=== PATIENT | male | born 1970 | race Caucasian/White ===

== ENCOUNTER → 2020-08-30 13:43 | Outpatient (BNVA) | payer OTHER, SELFPAY | PROVIDERS: Visit Provider Electrodiagnostic Medicine | DX: Z20.828 Contact with and (suspected) exposure to other viral communicable diseases (principal) | CPT/HCPCS: 87635 ==

== ENCOUNTER 2021-03-07 07:10 | Outpatient (CLI) | payer OTHER, SELFPAY ==
[2021-03-07 07:28] VITALS: BP 131/90; PULSE 80; RESP 16; TEMP 36.9; O2SAT 97; BMI 32.1
[2021-03-07 08:00] VITALS: BP 122/80; PULSE 76; RESP 16; O2SAT 93
[2021-03-07 08:50] VITALS: BP 120/80; PULSE 74; RESP 16; TEMP 36.8; O2SAT 94
== END 2021-03-07 07:11 | disposition home or self-care (01) ==
LOC: OPS 07:11
PROVIDERS: PCP Electrodiagnostic Medicine; Visit Provider Nurse Practitioner
DX: U07.1 COVID-19 (principal)
CPT/HCPCS: 96365

== ENCOUNTER 2021-03-29 03:35 | Emergency (ER) | payer OTHER, SELFPAY ==
[2021-03-29 03:39] VITALS: BP 187/95; PULSE 90; RESP 22; TEMP 36.2; O2SAT 96; BMI 32.1
--- NOTE | 2021-03-29 03:46 | CTR_ITS ---
PROCEDURE INFORMATION: Exam: CT Abdomen And Pelvis Without Contrast Exam date and time: 03/29/2021 3:46 AM Age: 50 years old Clinical indication: Abdominal pain; Patient HX: Left flank/groin pain; Additional info: L flank pain TECHNIQUE: Imaging protocol: Computed tomography of the abdomen and pelvis without contrast. Radiation optimization: All CT scans at this facility use at least one of these dose optimization techniques: automated exposure control; mA and/or kV adjustment per patient size (includes targeted exams where dose is matched to clinical indication); or iterative reconstruction. COMPARISON: No relevant prior studies available. RADIATION DOSE METRICS: Total DLP (mGy-cm): 1685.54 FINDINGS: Liver: Normal. No mass. Gallbladder and bile ducts: Multiple gallstones are present. No pericholecystic inflammatory changes to suggest cholecystitis. Pancreas: Normal. No ductal dilation. Spleen: Normal. No splenomegaly. Adrenal glands: Normal. No mass. Kidneys and ureters: There is a 0.6 cm obstructing stone in the left UVJ, resulting in mild hydronephrosis and stranding of the surrounding fat. There is an additional 1.0 cm calcific density within/adjacent to the left distal ureter. Other tiny nonobstructing stones are noted in the left lower kidney. There is a 1.5 cm cyst in the left mid kidney. The right kidney is unremarkable. Stomach and bowel: Unremarkable. No obstruction. No mucosal thickening. Appendix: No evidence of appendicitis. Intraperitoneal space: Unremarkable. No free air. No significant fluid collection. Vasculature: Unremarkable. No abdominal aortic aneurysm. Lymph nodes: Unremarkable. No enlarged lymph nodes. Urinary bladder: Unremarkable as visualized. Reproductive: Unremarkable as visualized. Bones/joints: Unremarkable. No acute fracture. Soft tissues: Unremarkable. CT/CT kidney stone [id number] IMPRESSION: Left UVJ obstructing stone, resulting in mild hydronephrosis. Additional calcific density within/adjacent to the left distal ureter. COMMENTS: Consistent with the [employer]'s Incidental Findings Committee white paper (J Am Carmelita Radiol 2018): Any incidental renal lesion less than 1 cm or classified as too small to characterize, or any incidental cystic renal lesion characterized as simple-appearing, is likely benign. No follow-up imaging is recommended for these lesions per consensus recommendations based on imaging criteria. Radiation Dose CTDIVOL = (mGy): DLP = 1685.54 (mGy-cm)
--- NOTE | 2021-03-29 03:47 | ED_ITS ---
HPI - Back Pain/Injury General: Chief Complaint: Back Pain/Injury Stated Complaint: left lower groin pain, L flank pain Time Seen by Provider: 03/29/21 03:36 Source: patient Mode of arrival: ambulatory Limitations: no limitations History of Present Illness: HPI Narrative: 50-year-old male states that at midnight he had sudden onset of left-sided flank pain. States the pain is severe in nature and rates an 8 out of 10. States it wraps around his left back and goes down to his left testicle. Denies any history of kidney stones in the past. Denies any vomiting or diarrhea. Denies any fevers. He states the pain is been constant not worse with movement or palpation. Associated symptoms: Deny abdominal pain, chills, fever(s), nausea or vomiting Review of Systems Const: Denies: fever(s), chills, body aches or change in appetite Eyes: Denies: blurry vision or eye discomfort ENMT: Denies: throat pain or dental pain Card: Denies: chest pain Resp: Denies: dyspnea GI: Denies: abdominal pain, nausea, vomiting or diarrhea : Reports: flank pain Musc: Denies: neck pain or back pain Skin/Breast: Denies: rash Neuro: Denies: headache(s) Psych: Denies: depression Delon/Lymph: Denies: easy bruising All/Imm: Denies: urticaria Physical Exam Const: COMMON NORMALS: no acute distress, patient oriented x3 and healthy appearing HENMT: COMMON NORMALS: normocephalic and atraumatic HEAD & SCALP: normocephalic and atraumatic Eye: COMMON NORMALS: Equal, round and reactive pupils present and EOMs intact bilaterally PUPIL: Yes Equal, round and reactive pupils present Neck/C-Spine: COMMON NORMALS: full ROM and supple Chest: COMMONS NORMALS: normal inspection of the chest and normal palpation of entire chest wall Resp: COMMON NORMALS: normal respiratory effort, No retractions, No use of accessory muscles and clear to auscultation bilaterally AUSCULTATION: clear to auscultation bilaterally Cardio: COMMON NORMALS: regular rate, regular rhythm and No murmurs present (Cardio) RATE: regular rate RHYTHM: regular rhythm GI: COMMON NORMALS: Normal to inspection, nondistended, normoactive bowel sounds present, Soft to palpation, non-tender and no masses PALPATION: Yes Soft to palpation Extremity: COMMON NORMALS: normal to inspection and full ROM Neuro: COMMON NORMALS: patient oriented x3, moves all extremities and no focal motor deficits Psych: COMMON NORMALS: mental status grossly normal, Normal thought process present and cooperative THOUGHT PROCESS: Normal thought process present Skin: COMMON NORMALS: no rashes or lesions noted and no wounds GENERAL SKIN EXAM: no rashes or lesions noted Course Vital Signs: Vital signs: Vital Signs Temperature 97.1 F L 03/29/21 03:39 Pulse Rate 86 03/29/21 06:39 Respiratory Rate 18 03/29/21 06:39 Blood Pressure 149/98 03/29/21 06:39 Pulse Oximetry 94 03/29/21 06:39 MDM - Back Pain/Injury MDM Narrative: Medical decision making narrative: Patient presents here with a kidney stone. Patient's pain here is completely resolved he is stable for discharge. We will place him on Flomax along with pain medicine and have him follow-up with Dr. Garrido in 1 to 2 days. He is return if worsening. He understands agrees to plan. Lab Data: Labs: Lab Results 03/29/21 Range/Units 03:54 Urine Color Yellow (Yellow) Urine Appearance Clear (CLEAR) Urine pH 7 (5-7) Ur Specific Gravit y 1.005 (1.005-1.030) Urine Protein Neg (Negative) Urine Glucose (UA) Norm (Normal) Urine Ketones Negative (Negative) Urine Blood 2+ H (Negative) Urine Nitrate Negative (Negative) Urine Bilirubin Neg (Negative) Urine Urobilinogen Norm (Negative) mg/dL Ur Leukocyte Tere ase Negative (Negative) Urine RBC 5-10 H (0-2) /hpf Urine WBC 0-4 H (0-5) /hpf Ur Squamous Epith Cells 0-4 H (0-5) /hpf Amorphous Sediment 1+ /hpf Urine Bacteria Trace (NONE) /hpf Discharge Plan Discharge Patient Disposition: Home Clinical Impression: Kidney stone Condition: Stable Prescriptions: New hydrocodone-acetaminophen 5-325 mg tablet 1 tab PO Q6H PRN (Reason: pain) Qty: 14 RF: 0 ondansetron 4 mg tablet,disintegrating 4 mg PO Q6H PRN (Reason: nausea and vomiting) Qty: 14 RF: 0 Flomax 0.4 mg capsule 0.4 mg PO DAILY Qty: 5 RF: 0 Discharge Orders: Discharge ED (Routine); Ordered 03/29/21 Ordered By: Martín Yun Referrals: Javon Garrido MD [Physician] - 1-3 days Renato Lo DO [Primary Care Provider] - Discharge Diet: Advance as tolerated Discharge Activity: Resume usual activity Patient Instructions: Kidney Stones (ED), Opioid Safety Coding Level of Care Code ED Sustainable Design Coordinator for Chg Fwd Exam Comprehensive
[2021-03-29] MEDS: sodium chloride 0.9% 1,000 ML 999 ML IV (03:50)
[2021-03-29] MEDS: ondansetron 2 mg/ML SDV 2 mL 4 MG IVP (03:55)
[2021-03-29 04:10] VITALS: RESP 20; O2SAT 98
[2021-03-29] MEDS: HYDROmorphone 1 mg/mL INJ 1 mL IVP (04:10)
[2021-03-29 04:21] LABS: Add Urine Microscopic? YES; Bacteria Urine TRACE /hpf; Bilirubin Urine Neg (Negative); Blood Urine 2+ (Negative); Glucose Urine UA Norm (Normal); Ketones Urine Negative (Negative); Leukocyte Esterase Urine Negative (Negative); Nitrate Urine Negative (Negative); Protein Urine Neg (Negative); Specific Gravity, Urine 1.005 (1.005-1.030); Squamous Epithelial Cell Urine 0-4 /hpf (0-5); Urine Appearance Clear (CLEAR); Urine Color Yellow (Yellow); Urobilinogen Urine Norm (Negative); WBC Urine 0-4 /hpf (0-5); pH Urine 7 (5-7)
[2021-03-29 04:22] LABS: Add Urine Culture? No; Amorphous Sediment Urine 1+ /hpf
[2021-03-29 05:12] VITALS: BP 136/87; PULSE 70; RESP 16; O2SAT 90
[2021-03-29 06:09] VITALS: RESP 18; O2SAT 98
[2021-03-29] MEDS: HYDROmorphone 1 mg/mL INJ 1 mL 0.5 MG IVP (06:09)
[2021-03-29] MEDS: ketorolac 30 mg/mL INJ 15 MG IVP (06:09)
[2021-03-29 06:21] VITALS: BP 164/98; PULSE 84; RESP 18; O2SAT 90
[2021-03-29 06:39] VITALS: BP 149/98; PULSE 86; RESP 18; O2SAT 94
--- NOTE | 2021-03-29 13:39 | DCPLANNER ---
multimedia services manager had message to schedule a follow up appointment for patient with Dr. Garrido. multimedia services manager called the office of Dr. Garrido, spoke with Zaynab, gave clinic patients information. multimedia services manager was told that patients information would be printed and reviewed. Clinic will call patient with appointment information.
--- NOTE | 2021-04-02 14:50 | DCPLANNER ---
Patient had a follow up appointment scheduled for 04.02.[address] Garrido - patient did attend appointment.
== END 2021-03-29 06:41 | disposition home or self-care (01) ==
PROVIDERS: Emergency Provider Emergency Medicine; PCP Electrodiagnostic Medicine
DX: N20.0 Calculus of kidney (principal)
CPT/HCPCS: 74176; 81001; 96361; 96374; 96375; 99284; J1170; J1885; J2405; J7030

== ENCOUNTER 2021-04-02 09:17 | Outpatient (CLI) | payer OTHER, SELFPAY ==
--- NOTE | 2021-04-02 09:30 | XRR_ITS ---
PROCEDURE INFORMATION: Exam: XR Abdomen Exam date and time: 04/02/2021 9:30 AM Age: 50 years old Clinical indication: Condition or disease; Kidney or ureter condition; Calculus (stone) in kidney; Patient HX: Kidney stones. Lt side; Additional info: Kidney stone f/u TECHNIQUE: Imaging protocol: XR of the abdomen. Views: Frontal supine view of the abdomen. 1 View. COMPARISON: CT kidney stone [id number] 03/29/2021 4:22 AM FINDINGS: Gastrointestinal tract: Normal. No bowel dilation. Intraperitoneal space: 6 mm and 5 mm calcifications in the lower left pelvis is consistent with calculi in the distal left ureter. The calculus identified near the iliac vessels on the CT has likely migrated more distally into the ureter. Organs: No renal calculus visualized. Bones/joints: Unremarkable. XR/XR KUB [id number] IMPRESSION: 1. Renal calculi in the distal left ureter. The previous calculus in the region of the left iliac vessels appears to have migrated more distally.
== END 2021-04-02 09:18 | disposition home or self-care (01) ==
PROVIDERS: PCP Electrodiagnostic Medicine; Visit Provider Urology
DX: N20.0 Calculus of kidney (principal)
CPT/HCPCS: 74018; 81003

== ENCOUNTER 2021-04-09 06:48 | Outpatient (CLI) | payer OTHER, SELFPAY ==
--- NOTE | 2021-04-09 07:00 | XR_ITS ---
WS: [id number] Exam: XR KUB [id number] Date/Time of Exam: 04/09/2021 6:57 AM Reason For Exam: URETERAL CALCULUS Comparison 04/02/2021. No bowel obstruction or free air. Small triangular-shaped calcification superimposes the left bladder and may represent a urinary tract stone. This has moved inferiorly since the prior study. No calcifi cations seen over the region of the kidneys. Regional bony structures are intact. No sign of organ en largement. XR/XR KUB [id number] IMPRESSION: 1. Small triangular-shaped calcification has moved distally and now superimpose s urinary bladder and may represent a urinary calculus in the bladder. 2. No acute abdominal finding.
== END 2021-04-09 06:49 | disposition home or self-care (01) ==
LOC: RAD 06:51
PROVIDERS: PCP Electrodiagnostic Medicine; Visit Provider Urology
DX: N20.1 Calculus of ureter (principal)
CPT/HCPCS: 74018; 81003

== ENCOUNTER 2021-04-16 06:51 | Outpatient (CLI) | payer OTHER, SELFPAY ==
--- NOTE | 2021-04-16 07:00 | XR_ITS ---
WS: [id number] XR KUB [id number] REASON FOR EXAM: ureteral calculus FINDINGS: No urinary tract calculi identified. The 2 left ureteral and 1 left intrarenal calculus demonstrated on the previous CT scan of 03/29/2021 are not identifiable on the current examination. No other significant finding. XR/XR KUB [id number] IMPRESSION: No urinary tract calculi identifiable.
== END 2021-04-16 06:52 | disposition home or self-care (01) ==
PROVIDERS: PCP Electrodiagnostic Medicine; Visit Provider Urology
DX: N20.1 Calculus of ureter (principal)
CPT/HCPCS: 74018; 81003

== ENCOUNTER 2021-04-19 14:02 | Day surgery (SDC) | payer OTHER, SELFPAY ==
[2021-04-18 15:57] VITALS: BMI 31.6
--- NOTE | 2021-04-19 14:14 | XR_ITS ---
WS: [id number] XR KUB [id number] REASON FOR EXAM: Left distal ureteral stone FINDINGS: No calculi identified in the right kidney. The tiny calculus in the left kidney demonstrated on the CT scan of 03/29/2021 is not identified on th is examination. The complex calculus in the lower pelvis just to the left of midline is again noted and unchanged in compared to 04/16/2021.. Position is consistent with the left ureteral vesicle junction. No other significant abdominal or pelvic abnormality. XR/XR KUB [id number] IMPRESSION: Distal left ureteral calculus unchanged in position compared to 04/16/2021.
--- NOTE | 2021-04-19 14:14 | SC_ITS ---
WS: [id number] [facility] REASON FOR EXAM: Preop left ureteroscopy FINDINGS: Intraprocedural retrograde ureteral pyelogram. Initial injection of contrast into the distal left ure ter demonstrates the previously identified complex calculus at the ureterovesical junction. Mild/mode rate dilatation of the distal left ureter proximal to the calculus. Catheter advanced to the left renal pelvis. Small amount of contrast within the left collecting syste m demonstrates mild dilatation of the opacified calyces. MO/[facility] IMPRESSION: Distal left ureteral calculus, ureteral vesicle junction. Left obstructive urop athy.
[2021-04-19] MEDS: sodium chloride 0.9% 1,000 ML 30 ML IV (14:54)
[2021-04-19 14:59] VITALS: BP 135/94; PULSE 56; RESP 17; TEMP 36.3; O2SAT 98
--- NOTE | 2021-04-19 15:20 | ANES.PREANE2 ---
Pre-Anesthetic Assessment Pre-Anesthetic Assessment: Height/Weight: Height 1.71 m Weight 92.986 kg Temp Pulse Resp BP Pulse Ox 97.3 F L 56 L 17 135/94 98 04/19/21 14:59 04/19/21 14:59 04/19/21 14:59 04/19/21 14:59 04/19/21 14:59 Preop Diagnosis: Refractory left distal ureteral stone Proposed Procedure: Operation Date: 04/19/21 16:00 Proposed Procedures p Laser Lithotripsy 87902 07725 53584 N20.1(Not Applicable) - Javon Garrido MD s Cystoscopy(Not Applicable) - Javon Garrido MD s Retrograde Pyelogram(Left) - Javon Garrido MD s Ureteroscopy(Not Applicable) - Javon Garrido MD s Ureteral Stent Placement(Not Applicable) - Javon Garrido MD Was Beta Manjit taken within 24 hours: N/A Was Clonidine taken within 24 hours: N/A Last intake: Intake Last Liquid Date 04/19/21 Last Liquid Time 10:00 Last Solid Date 04/18/21 Last Solid Time 20:00 Social: Social History: Tobacco (Chews) and No alcohol Exam: Pre-Anes Outpt Exam: alert, oriented x 3, clear to auscultation bilaterally and regular rate & rhythm Airway: Submandibular: WNL Cervical ROM: WNL MP: 2 Dentition: Chipped CV/HEM: CV/HEM: HTN Anesthetic Plan: ASA status: 2 Anesthesia: General Risk of > 500 ml blood loss (7ml/kg in children): No Meds/Allergies Current Medications: Current Medications Generic Name Dose Route Start Last Admin Trade Name Freq PRN Reason Stop Dose Admin Sodium Chloride 1,000 mls @ 30 ml s/hr 04/19/21 14:15 04/19/21 14:54 Sodium Chloride 0.9% IV 04/20/21 14:14 30 mls/hr .Q24H MADAN Administration PFSH Anesthesia PFSH: Medical History Left ureteral calculus Family History Mother Heart disease Lung disease Father , at age 41 MVA (motor vehicle accident) Social History Alcohol intake: former Marital status: Current occupational status: employed History of recent travel: No Data Anesthesia Cardiac Studies: No Data to Display
--- NOTE | 2021-04-19 16:13 | P.HPUD_ITS ---
Surgery/Procedure H&P Update DATE OF PROCEDURE: April 19, 2021 DATE H&P PERFORMED: 04/16/21 H&P UPDATE INFORMATION: I have reviewed H&P completed within last 30 days, I have examined patient prior to procedure, No changes to prior documentation and H&P is in [facility] [place] on date indicated CHANGES TO PREVIOUS DOCUMENTATION: KUB shows the stones in the same position PREOP DIAGNOSIS: Refractory left distal ureteral stone PLANNED PROCEDURE: Operation Date: 04/19/21 16:00 Proposed Procedures p Laser Lithotripsy 26490 [id number] 11841 N20.1(Not Applicable) - MD magen Sharma Cystoscopy(Not Applicable) - MD magen Sharma Retrograde Pyelogram(Left) - MD magen Sharma Ureteroscopy(Not Applicable) - MD magen Sharma Ureteral Stent Placement(Not Applicable) - Javon Garrido MD
[2021-04-19] MEDS: levofloxacin-dextrose 5 % 500 MG/100 ML PREMIX 100 MG IV (16:33)
[2021-04-19] MEDS: iohexol 300 mg/mL 50 mL Btl (OR ONLY) XX (17:05)
--- NOTE | 2021-04-19 17:28 | PM.OP ---
Operative Report Date of procedure: April 19, 2021 Pre-op Diagnosis: Refractory left distal ureteral stone Post-op diagnosis: same Procedure Done: 1. LEFT retrograde ureteropyelogram 2. LEFT ureteroscopy, laser, stent Implants: Left ureteral stent (4.5 Czech by 26 cm double-pigtail without string Pathology: Stone fragments Surgeon: Hema Anesthesia: General Estimated blood loss: Minimal Urine output: Not measured Complications: None Findings: Stones identified in the distal ureter in expected position. Well fragmented with 365 ?m thulium superpulse laser fiber and fragments removed with a parachute basket. Condition: stable Disposition: PACU Brief History: Kurtis is a very pleasant 50-year-old white male recently diagnosed with 2 stones in his left ureter. He was observed for an extended period of time with hopes of spontaneous passage but ultimately they did not. He was having intermittent severe pain and elected ultimately to proceed with intervention. Procedure: After routine preoperative evaluation examination and obtaining of informed consent he was taken to the operating suite on 04/19/2021 where general anesthesia was administered without difficulty after appropriate timeout was performed, SCDs confirmed to be functioning, preoperative antibiotics administered, beta-jonny protocol confirmed. Prepped and draped in the usual sterile fashion in dorsolithotomy position paying careful attention to avoiding pressure points. 21 Czech cystoscope was introduced to urethra meatus and advanced into the bladder without difficulty. The bladder was systematically examined and was without stone. The left ureteral orifice and intramural tunnel was inflamed and the stone could be seen just inside the left ureteral orifice. An 8 Czech cone-tip catheter was intubated into the left ureteral orifice for left retrograde ureteropyelogram: The stones were seen in the distal ureter as expected. The ureter proximal to that was mildly dilated. No other filling defects were identified. A flexible tip guidewire was then advanced beyond the stones easily up into the upper pole calyx and the distal ureter was then dilated with a 15 Czech 4 cm balloon with no waist at 4 tony. The wire was secured to the drapes as a safety wire after removal of the balloon. A 7 Czech offset semirigid ureteroscope was then advanced up the left ureter next to the guidewire where the stones were encountered in the expected position. Stones were fragmented with a 365 ?m thulium superpulse laser fiber and a small fragments that were easily then washed free from the ureter as well as basketed with a parachute basket. Final inspection revealed no significant fragments remaining and at most some small amount of sand. Because of the edema where the stone had been located it was decided to leave a stent. A 4.5 Czech by 26 cm stent was selected. The cystoscope was then backloaded over the guidewire and the stent was placed over the guidewire through the scope and appropriate position as confirmed via fluoroscopy and cystoscopy. The bladder was drained and the procedure was completed. Tolerated the procedure well without complications and was awakened in the operating room and returned to the recovery room in stable condition. PLANS: 1. Anticipate discharge from outpatient surgery 2. Follow-up next week for cystoscopy and stent removal.
[2021-04-19 17:35] VITALS: BP 148/94; PULSE 84; RESP 16; TEMP 36.3; O2SAT 98
[2021-04-19 17:40] VITALS: BP 136/88; PULSE 74; RESP 10; O2SAT 97
[2021-04-19 17:45] VITALS: BP 152/92; PULSE 79; RESP 17; TEMP 36.5; O2SAT 96
[2021-04-19 17:50] VITALS: BP 133/96; PULSE 82; RESP 17; TEMP 36.3; O2SAT 95
[2021-04-19 18:06] VITALS: BP 138/96; PULSE 68; RESP 16; TEMP 36.4; O2SAT 97
--- NOTE | 2021-04-20 06:49 | ANE.PACU2 ---
Inpatient post-anesthesia follow up: Airway intact: Yes Vital signs: Temperature 97.6 F Pulse Rate 68 Respiratory Rate 16 Blood Pressure 138/96 Pulse Oximetry 97 Oxygen Delivery Me thod Room Air Oxygen Flow Rate Fraction of Inspir ed Oxygen Hydration adequate: Yes Nausea and vomiting: No Pain level: 2 Mental status: Baseline
[2021-04-24 22:43] LABS: Stone Source LEFT URETERAL STONE
== END 2021-04-19 18:28 | disposition home or self-care (01) ==
PROVIDERS: PCP Electrodiagnostic Medicine; Visit Provider Urology
PROC: (CPT 52356; principal; 2021-04-19 15:50)
PROC: 0TJB8ZZ Inspection of Bladder, Via Natural or Artificial Opening Endoscopic (ICD-10-PCS; CPT 52000; 2021-04-19 15:50)
PROC: (CPT 74420; 2021-04-19 15:50)
PROC: 0TJ98ZZ Inspection of Ureter, Via Natural or Artificial Opening Endoscopic (ICD-10-PCS; CPT 52351; 2021-04-19 15:50)
PROC: (CPT 50605; 2021-04-19 15:50)
DX: N20.1 Calculus of ureter (principal); I10 Essential (primary) hypertension; Z82.49 Family history of ischemic heart disease and other diseases of the circulatory system
CPT/HCPCS: 52356; 74018; 76000; 82365; 88300; C2625; J1100; J1956; J2405; J2704; J2710; J3010; J3490; J7030

== ENCOUNTER → 2021-04-24 10:03 | Outpatient (BNVA) | payer OTHER, SELFPAY | PROVIDERS: PCP Electrodiagnostic Medicine; Visit Provider Urology | DX: N20.1 Calculus of ureter (principal); Z96.0 Presence of urogenital implants | CPT/HCPCS: 81003 ==

== ENCOUNTER 2021-11-20 06:41 | Outpatient (CLI) | payer OTHER, SELFPAY ==
--- NOTE | 2021-11-20 07:00 | XR_ITS ---
WS: [id number] XR KUB [id number] REASON FOR EXAM: Left Ureteral Calculus FINDINGS: No left ureteral calculi are identified. No other urinary tract calculi are noted. No other significant abnormality within the abdomen or pelvis. XR/XR KUB [id number] IMPRESSION: No urinary tract calculi are identified.
== END 2021-11-20 06:42 | disposition home or self-care (01) ==
PROVIDERS: PCP Electrodiagnostic Medicine; Visit Provider Urology
DX: N20.1 Calculus of ureter (principal)
CPT/HCPCS: 36415; 74018; 81003; 84153

== ENCOUNTER 2023-08-14 14:51 | Outpatient (CLI) | payer OTHER, SELFPAY ==
--- NOTE | 2023-08-14 15:38 | CT_ITS ---
WS: [id number] CT ABDOMEN AND PELVIS NONCONTRAST HISTORY: CALCULUS OF KIDNEY AND URETER TECHNIQUE: Imaging performed through the abdomen and pelvis. Coronal and sagittal reformats are submi tted. All CT scans at [facility] use at least one of these dose optimization techniques: auto mated exposure control; mA and/or kV adjustment per patient size (includes targeted exams where dose is matched to clinical indication); or iterative reconstruction. DLP: 459.84 mGy.cm COMPARISON: 03/29/2021 Lower thorax: Lung bases are clear. Visualized heart is normal. No hiatal hernia. Liver: Normal size liver. Focal low-attenuation mass in the superior RIGHT lobe of the liver measures 10 mm. Cannot be further evaluated by noncontrast CT but was also present on the prior study with no increase in size. No bile duct dilatation. Gallbladder: Normal gallbladder. No pericholecystic fluid or cholelithiasis. No gallbladder wall thic kening. Pancreas: Normal size and attenuation. Normal pancreatic duct. No pancreatitis or mass. Spleen: Normal. Adrenal glands: Minimal adrenal nodularity and thickening is similar to the prior study. Right kidney: Nonobstructing 3 mm calculus lower pole. Normal RIGHT ureter. Left kidney: Normal size kidney with multiple central nonobstructing calcifications in the mid to low er pole cortex. The stone burden has increased since the prior examination. Largest calcification is 8 x 3 mm in the lower pole. Exophytic mass measures 1.3 cm from the mid lateral kidney unchanged sinc e 2020. No ureteral calcification. Aorta: Normal abdominal aorta, no aneurysm or atherosclerosis. No free fluid, intraperitoneal air or significant lymphadenopathy. GI tract: Normal noncontrast imaging of the stomach, small bowel and colon. No obstruction or wall th ickening. Normal appendix. Abdominal wall: Negative. No hernia. Pelvis: Negative bladder. Central prostate gland calcifications. Osseous structures: Mild curvature lumbar spine. IMPRESSION: 1. Numerous nonobstructing LEFT renal calculi. The largest calculus measures 8 x 3 mm the lower pole . Stone burden has increased since 2020. There is no renal obstruction. 2. Nonobstructing calcification lower pole RIGHT kidney. 3. No organomegaly. No ascites.
== END 2023-08-14 14:52 | disposition home or self-care (01) ==
LOC: RAD 14:52
PROVIDERS: PCP Electrodiagnostic Medicine; Visit Provider Electrodiagnostic Medicine
DX: N20.2 Calculus of kidney with calculus of ureter (principal)
CPT/HCPCS: 74176